=== PATIENT | female | born 1935 | race Caucasian/White ===

== ENCOUNTER 2021-09-23 12:07 | Observation (INO) ==
[2021-09-23 12:43] LABS: Basophils # 0.1 10*3/uL (0.0-0.2); Basophils % 0.9 % (0.0-0.8); Eosinophils # 0.2 10*3/uL (0.0-0.87); Eosinophils % 2.3 % (0.00-10.9); Hematocrit 38.5 VOL% (35.7-47.0); Hemoglobin 12.1 GM/DL (12.0-16.0); Immature Granulocytes % 0.4 %; Immature Granulocytes Absolute 0.03 #; Lymphocytes # 1.5 10*3/uL (1.4-4.0); Lymphocytes % 17.9 % (21.3-54.2); Mean Corpuscular HGB Conc 31.4 GM/DL (32-36); Mean Corpuscular Volume 86.9 FL (87-102); Mean Platelet Volume 10.2 FL (9.6-12.0); Monocytes % 12.4 % (1.7-12.7); Neutrophils % 66.1 % (38.7-73.9); Platelet Count 235 T/CUMM (130-400); Red Blood Count 4.43 MC/CUMM (3.8-5.5); Red Cell Distribution Width 15.2 % (9.3-17.3); White Blood Count 8.2 T/CUMM (4-12)
[2021-09-23 13:03] LABS: Albumin 4.1 G/DL (3.4-5.0); Bilirubin,Total 1.2 MG/DL (0.20-1.00); Calcium 9.2 MG/DL (8.5-10.1); Potassium 3.9 MMOL/L (3.5-5.1); Total Protein 8.1 G/DL (6.4-8.2)
[2021-09-23] MEDS ORDERED: SODIUM CHLORIDE 0.9% 500 ML IV STA (13:22)
[2021-09-23 14:26] LABS: Bacteria,Urine Occasional /HPF (Few); Bilirubin,Urine Negative (Negative); Blood, Urine Negative (Negative); Glucose,Urine (UA) Negative (Negative); Hyaline Casts,Urine 5 /LPF (0-3); Ketones,Urine Negative (Negative); Mucus,Urine Occasional /LPF (Occasional); Nitrite,Urine Negative (Negative); Protein,Urine Negative; RBC,Urine 2 /HPF (0-4); Squamous Epithelial Cell,Urine Occasional /HPF (0-10); Urine Appearance CLEAR (Clear); Urine Color Yellow (Yellow); Urine Specific Gravity 1.006 (1.001-1.035); Urine Urobilinogen < 2.0 EU/DL (<2.0)
[2021-09-23] MEDS ORDERED: GLUCAGON 1 MG VIAL IM PRN (14:39)
[2021-09-23] MEDS ORDERED: SIMETHICONE CHEW 125 MG TABLET PO PRN (14:44)
[2021-09-23] MEDS ORDERED: ACETAMINOPHEN 325 MG TABLET PO PRN (14:44)
[2021-09-23] MEDS ORDERED: DOCUSATE SODIUM 100 MG CAPSULE PO PRN (14:44)
[2021-09-23] MEDS ORDERED: ONDANSETRON 4 MG/2 ML VIAL IV PRN (14:44)
[2021-09-23] MEDS ORDERED: DIGOXIN 0.125 MG TABLET PO SCH (15:00)
[2021-09-23] MEDS ORDERED: DEXTROSE 50% 25 GM/50 ML SYRINGE IV PRN (15:09)
[2021-09-23] MEDS: LACTATED RINGERS 1,000 ML IV SCH (15:47)
[2021-09-23] MEDS: PANTOPRAZOLE 40 MG TABLET PO SCH (15:47)
[2021-09-23] MEDS: EZETIMIBE 10 MG TABLET PO SCH (16:23)
[2021-09-23] MEDS: LEVOTHYROXINE 100 MCG TABLET PO SCH (16:23)
[2021-09-23] MEDS: APIXABAN 2.5 MG TABLET PO SCH (22:17)
[2021-09-23] MEDS: MEMANTINE 10 MG TABLET PO SCH (22:17)
[2021-09-23] MEDS: TIMOLOL 0.5% OPH SOLN 5 ML BOTTLE BOTH EYES SCH (22:18)
[2021-09-23] MEDS: PROPRANOLOL 20 MG TABLET PO SCH (22:18)
[2021-09-24] MEDS: LACTATED RINGERS 1,000 ML IV SCH ×2 (04:53→13:20)
[2021-09-24 05:25] LABS: Basophils % 0.5 % (0.0-0.8); Eosinophils # 0.2 10*3/uL (0.0-0.87); Eosinophils % 2.7 % (0.00-10.9); Hematocrit 33.4 VOL% (35.7-47.0); Hemoglobin 10.6 GM/DL (12.0-16.0); Immature Granulocytes % 0.3 %; Immature Granulocytes Absolute 0.02 #; Lymphocytes # 1.6 10*3/uL (1.4-4.0); Lymphocytes % 21.8 % (21.3-54.2); Mean Corpuscular HGB Conc 31.7 GM/DL (32-36); Mean Corpuscular Volume 86.1 FL (87-102); Mean Platelet Volume 10.3 FL (9.6-12.0); Monocytes % 11.8 % (1.7-12.7); Neutrophils % 62.9 % (38.7-73.9); Platelet Count 195 T/CUMM (130-400); Red Blood Count 3.88 MC/CUMM (3.8-5.5); White Blood Count 7.5 T/CUMM (4-12)
[2021-09-24 05:43] LABS: Albumin 3.2 G/DL (3.4-5.0); Bilirubin,Total 1.6 MG/DL (0.20-1.00); Calcium 8.5 MG/DL (8.5-10.1); Osmolality,Calculated 279.5 MOS/KG (273-304); Potassium 3.5 MMOL/L (3.5-5.1); Risk Ratio 5.96; Total Protein 6.7 G/DL (6.4-8.2)
[2021-09-24] MEDS: APIXABAN 2.5 MG TABLET PO SCH ×2 (09:30→22:45)
[2021-09-24] MEDS: TIMOLOL 0.5% OPH SOLN 5 ML BOTTLE BOTH EYES SCH ×2 (09:30→22:50)
[2021-09-24] MEDS: FOLIC ACID 1 MG TABLET PO SCH (09:30)
[2021-09-24] MEDS: CHOLECALCIFEROL 1,000 UNIT TABLET PO SCH (09:30)
[2021-09-24] MEDS: PANTOPRAZOLE 40 MG TABLET PO SCH (09:30)
[2021-09-24] MEDS: LEVOTHYROXINE 100 MCG TABLET PO SCH (09:30)
[2021-09-24] MEDS: PROPRANOLOL 20 MG TABLET PO SCH ×2 (09:30→22:45)
[2021-09-24] MEDS: EZETIMIBE 10 MG TABLET PO SCH (09:30)
[2021-09-24] MEDS: allopurinoL 100 MG TABLET PO SCH (09:30)
[2021-09-24] MEDS: MEMANTINE 10 MG TABLET PO SCH (22:45)
[2021-09-25 05:43] LABS: Basophils # 0.1 10*3/uL (0.0-0.2); Basophils % 0.6 % (0.0-0.8); Eosinophils # 0.2 10*3/uL (0.0-0.87); Eosinophils % 1.9 % (0.00-10.9); Hematocrit 36.3 VOL% (35.7-47.0); Hemoglobin 11.6 GM/DL (12.0-16.0); Immature Granulocytes % 0.4 %; Immature Granulocytes Absolute 0.04 #; Lymphocytes # 1.7 10*3/uL (1.4-4.0); Lymphocytes % 19.2 % (21.3-54.2); Mean Corpuscular Volume 86.4 FL (87-102); Mean Platelet Volume 10.5 FL (9.6-12.0); Monocytes % 10.4 % (1.7-12.7); Neutrophils % 67.5 % (38.7-73.9); Platelet Count 209 T/CUMM (130-400); Red Cell Distribution Width 15.2 % (9.3-17.3); White Blood Count 8.9 T/CUMM (4-12)
[2021-09-25] MEDS: LACTATED RINGERS 1,000 ML IV SCH ×2 (06:01→06:54)
[2021-09-25 06:03] LABS: Calcium 8.6 MG/DL (8.5-10.1); Osmolality,Calculated 275.8 MOS/KG (273-304); Potassium 3.8 MMOL/L (3.5-5.1)
[2021-09-25] MEDS: allopurinoL 100 MG TABLET PO SCH (10:08)
[2021-09-25] MEDS: PANTOPRAZOLE 40 MG TABLET PO SCH (10:08)
[2021-09-25] MEDS: FOLIC ACID 1 MG TABLET PO SCH (10:08)
[2021-09-25] MEDS: LEVOTHYROXINE 100 MCG TABLET PO SCH (10:08)
[2021-09-25] MEDS: APIXABAN 2.5 MG TABLET PO SCH (10:08)
[2021-09-25] MEDS: PROPRANOLOL 20 MG TABLET PO SCH (10:08)
[2021-09-25] MEDS: CHOLECALCIFEROL 1,000 UNIT TABLET PO SCH (10:08)
[2021-09-25] MEDS: TIMOLOL 0.5% OPH SOLN 5 ML BOTTLE BOTH EYES SCH (10:08)
[2021-09-25] MEDS: EZETIMIBE 10 MG TABLET PO SCH (10:08)
[2021-09-25 16:18] VITALS: BP 152/68
== END 2021-09-25 15:31 | disposition home health service (06) ==
LOC: N.ED 12:07 → INTOOBSV 14:44 → SUATTDRO 14:44 → N.EDINP 14:44 → N.TELEN 16:11
PROVIDERS: ADMIT Internal Medicine; ATTEND Internal Medicine